=== PATIENT | female | born 1965 | race Caucasian/White ===

== ENCOUNTER 2022-01-23 03:47 | Inpatient (IN) | payer MEDICAID ==
[~2022-01-23] VITALS: Ht 154.9 cm; Wt 109.9 kg
[2022-01-23 03:55] VITALS: BP_SYST 146
--- NOTE | 2022-01-23 03:57 | NUR ---
PER PATIENT, PATIENT HAD A COLONOSCOPY ON 01/10/22. NOW HAVING ABDOMINAL PAIN WITH N/V/D SINCE 1999 YESTERDAY.
--- NOTE | 2022-01-23 03:58 | NUR ---
PATIENT TAKEN TO ROOM 6 FOR EVAL, REPORT GIVEN TO RN'S.
[2022-01-23] MEDS ORDERED: NACL 0.9% 1,000 ML IV ONE ×2 (04:15→07:15)
[2022-01-23] MEDS ORDERED: ONDANSETRON HCL 4 MG/2 ML VIAL IVP ONE ×2 (04:15→07:15)
[2022-01-23] MEDS ORDERED: HYDROmorphone 1 MG/ML INJ. CARTRIDGE IVP ONE (04:15)
--- NOTE | 2022-01-23 04:15 | NUR ---
Dr. Moon at bedside with patient for evaluation.
[2022-01-23] MEDS ORDERED: HYDROmorphone 1 MG/ML INJ. CARTRIDGE ONE (04:32)
--- NOTE | 2022-01-23 04:40 | NUR ---
Pt to CT via christa accompanied by staff.
[2022-01-23 04:45] LABS: BASOPHILS # (AUTO) 0.1 K/uL (0.0-0.2); BASOPHILS % (AUTO) 0.6 % (0.0-2.0); EOSINOPHILS # (AUTO) 0.3 K/uL (0.0-0.4); EOSINOPHILS % (AUTO) 2.3 % (0.0-4.0); HEMATOCRIT 37.5 % (36-48); HEMOGLOBIN 12.9 g/dL (12.0-16.0); LYMPHOCYTES # (AUTO) 2.6 K/uL (1.0-5.5); LYMPHOCYTES % (AUTO) 18.8 % (20.5-51.5); MEAN CORPUSCULAR HEMOGLOBIN 29 pg (27-31); MEAN CORPUSCULAR HGB CONC 34 % (32-36); MEAN CORPUSCULAR VOLUME 84 fL (79.0-98.0); MONOCYTES # (AUTO) 0.9 K/uL (0.0-1.0); MONOCYTES % (AUTO) 6.3 % (1.7-9.3); PLATELET COUNT (AUTO) 272 K/uL (130-430); RED BLOOD CELL COUNT(AUTO) 4.47 MIL/uL (4.2-6.2); RED CELL DISTRIBUTION WIDTH 14.2 % (9.0-15.0); WHITE BLOOD COUNT (AUTO) 13.9 K/uL (4.8-10.8)
--- NOTE | 2022-01-23 04:45 | NUR ---
Pt states that she is feeling relief from abd pain after rec pain medication per MD order. Pt states she "feels little pain now." VSS. Safety precautions in place.
[2022-01-23 04:47] LABS: ANION GAP 10 (5-15); CALCIUM 9.1 mg/dL (8.4-11.0); CHLORIDE 104 mmol/L (98-107); CREATININE 0.87 mg/dL (0.55-1.30); GLUCOSE 172 mg/dL (70-99); POTASSIUM 3.7 mmol/L (3.5-5.1); SODIUM SERUM 141 mmol/L (136-145); UREA NITROGEN, BLOOD 18 mg/dL (8-21)
[2022-01-23 04:56] LABS: ALANINE AMINOTRANSFERASE 43 U/L (12-78); ALBUMIN 3.7 g/dL (3.4-4.8); ASPARTATE AMINOTRANSFERASE 31 U/L (10-37); LIPASE 289 U/L (73-393); TOTAL BILIRUBIN 0.2 mg/dL (0.0-1.0)
[2022-01-23 05:07] LABS: GFR AFRICAN AMERICAN 86 mL/min (>90)
[2022-01-23] MEDS ORDERED: KETOROLAC TROMETHAMINE 30 MG VIAL IVP ONE (05:30)
--- NOTE | 2022-01-23 05:30 | NUR ---
US being done at bedside.
--- NOTE | 2022-01-23 06:49 | NUR ---
Urine collected and sent to lab.
--- NOTE | 2022-01-23 06:59 | NUR ---
COVID SWAB SENT TO LAB.
[2022-01-23 07:08] LABS: BILIRUBIN,URINE NEGATIVE (NEGATIVE); BLOOD, URINE NEGATIVE (NEGATIVE); CLARITY/URINE CLEAR (CLEAR); COLOR,URINE YELLOW (YELLOW); GLUCOSE,URINE NEGATIVE (NEGATIVE); KETONES,URINE TRACE (NEGATIVE); LEUKOCYTE ESTERASE ,URINE NEGATIVE (NEGATIVE); NITRITE, URINE NEGATIVE (NEGATIVE); PH,URINE 5.5 (5.0-8.0); PROTEIN URINE 1+ (NEGATIVE); UROBILINOGEN,URINE 0.2 (0.2-1.0)
[2022-01-23] MEDS ORDERED: PANTOPRAZOLE SODIUM 40 MG/VIAL (PROTONIX) IVP ONE (07:15)
[2022-01-23] MEDS ORDERED: MORPHINE 4 MG INJ. 4 MG/ML VIAL IVP ONE (07:15)
--- NOTE | 2022-01-23 07:20 | NUR ---
RECEIVED PT FROM [facility]. PT IS HERE FOR C/O AB PAIN AND N/V. PT CT SHOWS EARLY SBO. DR. TORRES AT [facility] EDUCATION PT ON THE DX AND INFORMING HER THAT SHE WILL BE ADMITED, BUT POSSIBLE TRANSFERRED D/T MEDICAL INSURANCE. PT AGREED WITH POC. PT IS AAOX4. ON R/A. NORMAL S1S2 NOTED. PT HAS C/O AB THROBBING AB PAIN 8O WITH N/V. PT WILL BE MEDICATED PER AUG. DISTAL PULSE NORMAL, SKIN WARM, NO EDEMA. IV CATH TO LAC 20G, PATENT, SITE WNL, DRESSING CDI. SIDERAILS UP X2.
--- NOTE | 2022-01-23 07:53 | NUR ---
BELONINGS INVENTORY AND MED REC COMPLETED. PT MEDICATED PER MAR FOR PAIN AND STATES PAIN IT 4/10 AND TOLERABLE AT THIS TIME.
[2022-01-23] MEDS ORDERED: OMEP40CA20 PO (07:59)
[2022-01-23] MEDS ORDERED: VITD2000 PO (07:59)
[2022-01-23] MEDS ORDERED: LIP10 PO (07:59)
[2022-01-23] MEDS ORDERED: SERT-131 PO (07:59)
[2022-01-23] MEDS ORDERED: LOSA100T23 PO (07:59)
[2022-01-23] MEDS ORDERED: ALBU2.5V7 INH (08:06)
[2022-01-23] MEDS ORDERED: FLO44 INH (08:06)
--- NOTE | 2022-01-23 08:11 | NUR ---
Admit bed requested Patient will be admitted to care of . Admitted to TELE unit. Diagnosis ABD PAIN, TACHYCARDIA, POSSIBLE SBO Inpatient (Yes or No) YES Observation (Yes or No) NO Orientation concerns or request close to nursing station (Yes or No) NO Covid Status PENDING On vent or bipap NO Isolation requirements NO Needs a sitter NO From Home (Yes or if No enter name of facility) HOME Requires Dialysis (Yes or No) NO Med Rec Completed (Yes of No) YES
[2022-01-23 08:45] LABS: BARBITURATE, URINE NEGATIVE (NEG <=200); BENZODIAZEPINE, URINE NEGATIVE (NEG <=150); CANNABINOID, URINE NEGATIVE (NEG <=50); COCAINE, URINE NEGATIVE (NEG <=150); METHAMPHETAMINES SCREEN,URINE NEGATIVE (NEG <=500); OPIATE, URINE POSITIVE (NEG <=100); PHENCYCLIDINE SCREEN,URINE NEGATIVE (NEG <=25); UR TRICYCLIC ANTIDEPRESSANTS NEGATIVE (NEG <=300); URINE AMPHETAMINE NEGATIVE (NEG <=500); URINE METHADONE NEGATIVE (NEG <=200); URINE OXYCODONE SCREEN NEGATIVE (NEG <=100); URINE PROPOXYPHENE SCREEN NEGATIVE (NEG <=300)
--- NOTE | 2022-01-23 09:12 | NUR ---
Report received from MARIA ELENA Guzmán for continuity of care. Patient in stable condition. Vital signs stable. Patient is alert and oriented x4. No neuro deficits. Respiration even and unlabored. Patient moving around in bed restless, was medicated prior to coming to hospital room. Patient on IV fluids at the moment. at bedside.
--- NOTE | 2022-01-23 09:12 | NUR ---
Patient will be admitted to care of MARIA ELENA CANCINO. Admitted to TELE unit. Will go to room 110B. Belongings list completed. Complete and up to date summary report printed. SBAR report to be given at bedside with opportunity for questions.
[2022-01-23] MEDS: LR 1,000 ML IV SCH ×2 (09:22→17:11)
[2022-01-23 09:23] VITALS: BP_SYST 117
[2022-01-23 09:31] VITALS: BP_SYST 117
[2022-01-23] MEDS ORDERED: NALOXONE HCL 0.4 MG/ML AMP (NARCAN) IVP PRN (10:00)
[2022-01-23] MEDS ORDERED: GASTROGRAFIN 120 ML ONE (10:11)
[2022-01-23] MEDS: HYDROmorphone 1 MG/ML INJ. CARTRIDGE IVP PRN ×2 (10:16→17:10)
[2022-01-23 12:00] VITALS: BP_SYST 124
[2022-01-23] MEDS ORDERED: PANTOPRAZOLE SODIUM 80 MG in NS 100 ML IVP ONE (12:15)
--- NOTE | 2022-01-23 12:35 | NUR ---
CONSULT SURGERY SOB DR KAM,S [phone] S/W DR KAM HE IS AWARE OF CONSULT
--- NOTE | 2022-01-23 12:37 | NUR ---
CONSULT GI ABDOMINAL PAIN DR VELEZ [phone] DR CHOI BAR SUPERVISOR S/W RADHA EXCHANGE
[2022-01-23 16:00] VITALS: BP_SYST 128
[2022-01-23] MEDS: PIPERACILLIN/TAZO 3.375/DEX-IS 50 ML IV SCH ×2 (17:08→18:00)
[2022-01-23] MEDS: ONDANSETRON HCL 4 MG/2 ML VIAL IVP PRN (17:09)
[2022-01-23] MEDS ORDERED: PANTOPRAZOLE SODIUM 40 MG/VIAL (PROTONIX) ONE ×2 (17:22)
[2022-01-23] MEDS: PANTOPRAZOLE SODIUM 40 MG in NS 50 ML IV SCH ×2 (17:30→17:56)
--- NOTE | 2022-01-23 19:20 | NUR ---
OPENING NOTE PT IS SITTING UP IN BED WITH EYES CLOSED, FAMILY BEDSIDE. NO APPARENT SIGNS OF DISTRESS NOTED AT THIS TIME. BED IS LOWEST POSITION WITH FALL AND SAFETY PRECAUTIONS IN PLACE. IV FLUIDS RUNNING ORDERED. ALL NEEDS MET AT THIS TIME
[2022-01-23 20:00] VITALS: BP_SYST 118
[2022-01-24] VITALS: BP_SYST 139
[2022-01-24] MEDS: LR 1,000 ML IV SCH ×2 (01:01→17:35)
[2022-01-24] MEDS: PANTOPRAZOLE SODIUM 40 MG in NS 50 ML IV SCH ×3 (01:03→08:10)
[2022-01-24] MEDS: PIPERACILLIN/TAZO 3.375/DEX-IS 50 ML IV SCH ×4 (01:04→18:23)
[2022-01-24] MEDS: ONDANSETRON HCL 4 MG/2 ML VIAL IVP PRN (01:09)
[2022-01-24] MEDS: HYDROmorphone 1 MG/ML INJ. CARTRIDGE IVP PRN ×2 (01:10→08:40)
--- NOTE | 2022-01-24 01:13 | NUR ---
IV DILAUDID GIVEN RN GARDENIA GAVE 1 MG OF DILAUDID, WITNESSED BY JESICA PACK BP 133/79, HR 78 PAIN, 7/10
--- NOTE | 2022-01-24 02:55 | NUR ---
PT CALLED; PT CALLED AND STATED SHE FEELS LIKE HER ARM IS SWOLLEN , WENT AND CHECKED , NOTICED RIGHT ARM IS SWOLLEN AND FIRM TO TOUCH ; IV FLUID STOPPED,AND DISCONNECTED , ARM ELEVATED ON A PILLOW ;NO OTHER COMPLAINTS AT THIS TIME; WILL NOTIFY PRIMARY NURSE AND WILL REQUEST HER TO CHANGE THE IV SITE .
--- NOTE | 2022-01-24 04:20 | NUR ---
IV RE-INSERTION: Complaining of pain to IV site. Restarted on 01/24/22 0350. Successful after 3 attempts. Resumed current IVF of LR and regulated @ 150 per hour. Will observe for any signs of infiltration. PT TOLERATED WELL
[2022-01-24 07:00] VITALS: BP_SYST 138
[2022-01-24 07:18] LABS: BASOPHILS % (AUTO) 0.3 % (0.0-2.0); EOSINOPHILS # (AUTO) 0.3 K/uL (0.0-0.4); EOSINOPHILS % (AUTO) 3.4 % (0.0-4.0); HEMATOCRIT 33.8 % (36-48); HEMOGLOBIN 11.6 g/dL (12.0-16.0); LYMPHOCYTES # (AUTO) 2.6 K/uL (1.0-5.5); MEAN CORPUSCULAR HEMOGLOBIN 29 pg (27-31); MEAN CORPUSCULAR HGB CONC 35 % (32-36); MEAN CORPUSCULAR VOLUME 85 fL (79.0-98.0); MONOCYTES # (AUTO) 0.7 K/uL (0.0-1.0); MONOCYTES % (AUTO) 7.5 % (1.7-9.3); NEUTROPHILS # (AUTO) 5.9 K/uL (1.8-7.7); NEUTROPHILS % (AUTO) 61.8 % (40.0-70.0); PLATELET COUNT (AUTO) 238 K/uL (130-430); RED BLOOD CELL COUNT(AUTO) 3.99 MIL/uL (4.2-6.2); RED CELL DISTRIBUTION WIDTH 14.6 % (9.0-15.0); WHITE BLOOD COUNT (AUTO) 9.6 K/uL (4.8-10.8)
--- NOTE | 2022-01-24 07:35 | NUR ---
CLOSING NOTE PT IS SITTING UP IN BED WITH EYES CLOSED. NO APPARENT SIGNS OF DISTRESS NOTED AT THIS TIME. BED IS IN LOWEST POSITION WITH SAFETY PRECAUTIONS IN PLACE. CALL LIGHT IS WITHIN REACH. IV FLUIDS RUNNING ORDERED
[2022-01-24 07:45] LABS: CALCIUM 8.8 mg/dL (8.4-11.0); CREATININE 0.91 mg/dL (0.55-1.30); POTASSIUM 3.9 mmol/L (3.5-5.1); TOTAL BILIRUBIN 0.3 mg/dL (0.0-1.0)
[2022-01-24 08:00] VITALS: BP_SYST 138
[2022-01-24 12:00] VITALS: BP_SYST 102
[2022-01-24 16:00] VITALS: BP_SYST 118
[2022-01-24 20:00] VITALS: BP_SYST 129
[2022-01-24] MEDS: PANTOPRAZOLE SODIUM 40 MG/VIAL (PROTONIX) IVP SCH (22:46)
[2022-01-25] VITALS: BP_SYST 136
[2022-01-25] MEDS: PIPERACILLIN/TAZO 3.375/DEX-IS 50 ML IV SCH ×2 (06:19→12:27)
[2022-01-25 06:59] LABS: BASOPHILS % (AUTO) 0.5 % (0.0-2.0); EOSINOPHILS # (AUTO) 0.4 K/uL (0.0-0.4); EOSINOPHILS % (AUTO) 4.8 % (0.0-4.0); HEMATOCRIT 31.3 % (36-48); HEMOGLOBIN 10.9 g/dL (12.0-16.0); LYMPHOCYTES # (AUTO) 2.7 K/uL (1.0-5.5); LYMPHOCYTES % (AUTO) 33.8 % (20.5-51.5); MEAN CORPUSCULAR HEMOGLOBIN 30 pg (27-31); MEAN CORPUSCULAR HGB CONC 35 % (32-36); MEAN CORPUSCULAR VOLUME 85 fL (79.0-98.0); MONOCYTES # (AUTO) 0.5 K/uL (0.0-1.0); MONOCYTES % (AUTO) 6.5 % (1.7-9.3); NEUTROPHILS # (AUTO) 4.4 K/uL (1.8-7.7); NEUTROPHILS % (AUTO) 54.4 % (40.0-70.0); PLATELET COUNT (AUTO) 234 K/uL (130-430); RED CELL DISTRIBUTION WIDTH 14.4 % (9.0-15.0); WHITE BLOOD COUNT (AUTO) 8.1 K/uL (4.8-10.8)
[2022-01-25 07:32] LABS: ALBUMIN 2.9 g/dL (3.4-4.8); CALCIUM 8.7 mg/dL (8.4-11.0); CREATININE 0.78 mg/dL (0.55-1.30); POTASSIUM 3.7 mmol/L (3.5-5.1); TOTAL BILIRUBIN 0.2 mg/dL (0.0-1.0)
[2022-01-25 08:00] VITALS: BP_SYST 145
[2022-01-25] MEDS ORDERED: LOSARTAN POTASSIUM 50 MG TABLET (COZAAR) PO ONE (09:00)
[2022-01-25] MEDS: PANTOPRAZOLE SODIUM 40 MG/VIAL (PROTONIX) IVP SCH (09:05)
[2022-01-25] MEDS: LR 1,000 ML IV SCH (09:06)
[2022-01-25] MEDS ORDERED: LOSA100T3 PO (10:26)
[2022-01-25] MEDS ORDERED: ALBUTEROL SULFATE 0.083% 2.5 MG/3 ML VIAL.NEB INH PRN (10:30)
[2022-01-25] MEDS ORDERED: FLUTICASONE 44 mcg/ACTUATION MDI AER.W.ADAP INH SCH (10:30)
[2022-01-25] MEDS ORDERED: SERTRALINE HCL 50 MG TABLET PO ONE (10:30)
[2022-01-25 10:38] VITALS: BP_SYST 136
[2022-01-25] MEDS ORDERED: PRO40 PO (10:40)
[2022-01-25] MEDS ORDERED: CHOLECALCIFEROL (VITAMIN D3) 2,000 UNIT TABLET PO ONE (11:00)
[2022-01-25] MEDS ORDERED: CIPR500T5 PO (11:20)
[2022-01-25] MEDS ORDERED: METR-343 PO (11:22)
[2022-01-25 11:30] VITALS: BP_SYST 125
[2022-01-25 11:36] VITALS: BP_SYST 142
--- NOTE | 2022-01-25 15:25 | NUR ---
0800: AWAKE, ALERT, ORIENTED X 4 TO NAME, PERSON, PLACE, AND TIME. RESPIRATION EVEN AND UNLABORED NO S/S OF ANY ACUTE DISTRESS NOTED. ABLE TO VERBALIZE NEEDS NO C/O ANY PAIN OR DISCOMFORT NOTED. ABDOMEN SOFT AND NON-DISTENDED, POSITIVE BOWEL SOUND X 4 NO N/V OR DIARRHEA NOTED. SKIN WARM AND DRY INTACT, TO START ON SOILD FOOD THIS AM. WILL REASSESS IF ABLE TO TOLERATE PO W/O ANY ABDOMINAL DISCOMFORT. WILL CONTINUE TO REASSESS PATIENT PRN. 1300: PATIENT DISCHARGE HOME PER DR. BATEMAN'S ORDER, PRESCRIPTION FOR 3 NEW ORAL ANTIBIOTIC, DISCHARGE TEACHING INCLUDING IMPORTANCE OF TAKING AND FINISHING UP THE COURSE OF ORDERED ANTIBIOTIC. CONTINUE OTHER HOME MEDICATION BEFORE. IF PROBLEM KEEP PERSIST OR ABDOMINAL PAIN WORSEN, INSTRUCTED TO GO TO THE NEAREST ER FOR TREATMENT. PATIENT VERBALIZE UNDERSTANDING AND WILL COMPLY WITH INSTRUCTION GIVEN. PATIENT LEFT THE FACILITY VIA PRIVATE VEHICLE ACCOMPANIED BY SPOUSE.
[2022-01-25] MEDS ORDERED: ATORVASTATIN 10 MG TABLET PO SCH (21:00)
[2022-01-25] MEDS ORDERED: SERTRALINE HCL 50 MG TABLET PO SCH (21:00)
[2022-01-26] MEDS ORDERED: METO-290 PO (00:35)
[2022-01-26] MEDS ORDERED: DIPH25CA83 PO (00:35)
[2022-01-26] MEDS ORDERED: CHOLECALCIFEROL (VITAMIN D3) 2,000 UNIT TABLET PO SCH (09:00)
[2022-01-26] MEDS ORDERED: LOSARTAN POTASSIUM 50 MG TABLET (COZAAR) PO SCH (09:00)
== END 2022-01-25 13:30 | disposition home or self-care (01) | DRG 253 ==
LOC: SED 03:47 → STU 08:09
PROVIDERS: ADMIT Internal Medicine; ATTEND Internal Medicine
PROC: 0D9670Z Drainage of Stomach with Drainage Device, Via Natural or Artificial Opening (ICD-10-PCS; principal; 2022-01-23)
PROC: 3E0G76Z Introduction of Nutritional Substance into Upper GI, Via Natural or Artificial Opening (ICD-10-PCS; 2022-01-23)
DX: K92.2 Gastrointestinal hemorrhage, unspecified (principal); K56.609 Unspecified intestinal obstruction, unspecified as to partial versus complete obstruction; R65.10 Systemic inflammatory response syndrome (SIRS) of non-infectious origin without acute organ dysfunction; K76.0 Fatty (change of) liver, not elsewhere classified; I10 Essential (primary) hypertension; K44.9 Diaphragmatic hernia without obstruction or gangrene; K64.9 Unspecified hemorrhoids; E66.01 Morbid (severe) obesity due to excess calories; E78.00 Pure hypercholesterolemia, unspecified; E78.5 Hyperlipidemia, unspecified; D64.9 Anemia, unspecified; Z20.822 Contact with and (suspected) exposure to COVID-19; Z68.42 Body mass index [BMI] 45.0-49.9, adult
CPT/HCPCS: 36415; 71045; 74250-TC; 76376; 76705; 80053; 80061; 80307; 81003; 82272; 83690; 84484; 85025; 87045-TC; 87046; 93005; 94760; 96361; 96374; 96375; 99285; C9113; G0378; J1170; J1885; J2270; J2405; J2543; Q9963

== ENCOUNTER 2022-01-25 21:48 | Emergency (ER) | payer MEDICAID ==
[~2022-01-25] VITALS: Ht 152.4 cm; Wt 108.9 kg
[~2022-01-25 21:48] MED LIST: ALBU2.5V7 INH; CIPR500T5 PO; FLO44 INH; LIP10 PO; LOSA100T23 PO; LOSA100T3 PO; METR-343 PO; OMEP40CA20 PO; PRO40 PO; SERT-131 PO; VITD2000 PO
[2022-01-25 21:59] VITALS: BP_SYST 137
--- NOTE | 2022-01-25 22:04 | NUR ---
PT HERE FOR MID ABD PAIN WITH NAUSEA AFTER DINNER. PER PT SHE WAS JUST DC TODAY FOR SAME SYMPTOM. PT AMBULATED TO RM 7 WITH STEADY GAIT.
--- NOTE | 2022-01-25 22:11 | NUR ---
Pt to bed 7 w/ c/o RUQ abdominal pain 6/10 cramping in nature. Pt states toko 500 mg Tylenol at 2100 tonight w/ no relief of symptoms. Pt was recently admitted and then discharged today from this hospital s/p studies to r/o SBO. Pt able to pass stools at this time. Denies n/v, denies blood in stool, denies chest pain or dizziness. Pt ambulates with strong, steady gait. Respirations even and unlabored. Side rails up, bed in low position, wheels locked.
--- NOTE | 2022-01-25 22:15 | NUR ---
MD Mcqueen at bedside speaking to patient at this time.
[2022-01-25] MEDS ORDERED: DIPHENHYDRAMINE INJ 50 MG/ML VIAL IVP ONE (22:30)
[2022-01-25] MEDS ORDERED: NACL 0.9% 1,000 ML IV ONE (22:30)
[2022-01-25] MEDS ORDERED: METOCLOPRAMIDE HCL 10 MG/2 ML VIAL IVP ONE (22:30)
--- NOTE | 2022-01-25 22:45 | NUR ---
# 20 gauge angiocath placed to left upper forearm. Use of asceptic technique. Opsite placed over site. Blood return noted. Flushed with 10 cc of normal saline. No evidence of infiltration noted. Patient tolerated well.
[2022-01-25 23:58] LABS: BASOPHILS # (AUTO) 0.1 K/uL (0.0-0.2); BASOPHILS % (AUTO) 0.8 % (0.0-2.0); EOSINOPHILS # (AUTO) 0.4 K/uL (0.0-0.4); EOSINOPHILS % (AUTO) 4.2 % (0.0-4.0); HEMATOCRIT 32.4 % (36-48); LYMPHOCYTES # (AUTO) 2.5 K/uL (1.0-5.5); LYMPHOCYTES % (AUTO) 24.2 % (20.5-51.5); MEAN CORPUSCULAR HEMOGLOBIN 29 pg (27-31); MEAN CORPUSCULAR HGB CONC 34 % (32-36); MEAN CORPUSCULAR VOLUME 84 fL (79.0-98.0); MONOCYTES # (AUTO) 0.7 K/uL (0.0-1.0); MONOCYTES % (AUTO) 6.8 % (1.7-9.3); NEUTROPHILS # (AUTO) 6.5 K/uL (1.8-7.7); PLATELET COUNT (AUTO) 245 K/uL (130-430); RED BLOOD CELL COUNT(AUTO) 3.84 MIL/uL (4.2-6.2); RED CELL DISTRIBUTION WIDTH 14.4 % (9.0-15.0); WHITE BLOOD COUNT (AUTO) 10.2 K/uL (4.8-10.8)
--- NOTE | 2022-01-26 | NUR ---
MD Mcqueen at bedside
[2022-01-26 00:08] LABS: CALCIUM 8.8 mg/dL (8.4-11.0); CREATININE 0.8 mg/dL (0.55-1.30); POTASSIUM 3.1 mmol/L (3.5-5.1)
[2022-01-26 00:22] LABS: TOTAL BILIRUBIN 0.2 mg/dL (0.0-1.0)
[2022-01-26] MEDS ORDERED: METO-290 PO (00:35)
[2022-01-26] MEDS ORDERED: DIPH25CA83 PO (00:35)
[2022-01-26] MEDS ORDERED: POTASSIUM CHLORIDE 20 MEQ TAB.PRT.SR PO ONE (00:45)
[2022-01-26] MEDS ORDERED: POTASSIUM CHLORIDE 20 MEQ TAB.PRT.SR ONE (00:46)
--- NOTE | 2022-01-26 00:51 | NUR ---
Patient given written and verbal discharge instructions and verbalizes understanding. ER MD discussed with patient the results and treatment provided. Patient in stable condition. ID arm band removed. IV catheter removed intact and dressing applied, no active bleeding. Rx of Reglan and Diphenhydramine given. Patient educated on pain management and to follow up with PMD. Pain Scale 0/10. Opportunity for questions provided and answered. Medication side effect fact sheet provided.
[2022-01-26 00:52] VITALS: BP_SYST 136
== END 2022-01-26 00:50 | disposition home or self-care (01) ==
LOC: SED 21:48
DX: K44.9 Diaphragmatic hernia without obstruction or gangrene (principal); E87.6 Hypokalemia; K20.90 Esophagitis, unspecified without bleeding; R11.0 Nausea; Z79.899 Other long term (current) drug therapy
CPT/HCPCS: 99284; 96374; 96361; 96375; 80053; 83735; 85025; 36415; J1200; J2765; J7030

== ENCOUNTER 2022-12-21 12:14 | Emergency (ER) | payer MEDICAID ==
[~2022-12-21] VITALS: Ht 154.9 cm; Wt 104.3 kg
[~2022-12-21 12:14] MED LIST changes: +DIPH25CA83 PO; -LOSA100T3 PO; +LOSA100T4 PO; +METO-290 PO
[2022-12-21 12:25] VITALS: BP_SYST 142; PULSE 85; RESP 22; TEMP 98.3; O2SAT 98
--- NOTE | 2022-12-21 12:30 | NUR ---
Pt brought by self, ambulatory, pt presents to ER with sore throat since today, denies cough, congestion, skin pink and warm, afebrile, will cont to monitor
--- NOTE | 2022-12-21 12:50 | NUR ---
Dr Li evaluating patient in the triage room
[2022-12-21 13:10] LABS: BASOPHILS # (AUTO) 0.1 K/uL (0.0-0.2); BASOPHILS % (AUTO) 0.8 % (0.0-2.0); EOSINOPHILS # (AUTO) 0.3 K/uL (0.0-0.4); EOSINOPHILS % (AUTO) 3.9 % (0.0-4.0); HEMATOCRIT 38.3 % (36-48); HEMOGLOBIN 12.7 g/dL (12.0-16.0); LYMPHOCYTES # (AUTO) 2.2 K/uL (1.0-5.5); LYMPHOCYTES % (AUTO) 27.1 % (20.5-51.5); MEAN CORPUSCULAR HEMOGLOBIN 28 pg (27-31); MEAN CORPUSCULAR HGB CONC 33 % (32-36); MEAN CORPUSCULAR VOLUME 85 fL (79.0-98.0); MONOCYTES # (AUTO) 0.5 K/uL (0.0-1.0); MONOCYTES % (AUTO) 6.6 % (1.7-9.3); NEUTROPHILS # (AUTO) 4.9 K/uL (1.8-7.7); NEUTROPHILS % (AUTO) 61.6 % (40.0-70.0); PLATELET COUNT (AUTO) 270 K/uL (130-430); RED BLOOD CELL COUNT(AUTO) 4.52 MIL/uL (4.2-6.2); RED CELL DISTRIBUTION WIDTH 15.6 % (9.0-15.0)
[2022-12-21 13:30] LABS: ANION GAP 9 (5-15); CHLORIDE 105 mmol/L (98-107); CREATININE 0.85 mg/dL (0.55-1.30); GFR AFRICAN AMERICAN 88 mL/min (>90); GLUCOSE 114 mg/dL (74-106); UREA NITROGEN, BLOOD 13 mg/dL (8-21)
[2022-12-21 13:37] LABS: ALANINE AMINOTRANSFERASE 40 U/L (12-78); ALBUMIN 3.6 g/dL (3.4-4.8); ASPARTATE AMINOTRANSFERASE 29 U/L (10-37); TOTAL BILIRUBIN 0.4 mg/dL (0.0-1.0)
[2022-12-21] MEDS ORDERED: PRO40 PO (13:56)
[2022-12-21] MEDS ORDERED: AMOX500C2 PO (13:57)
--- NOTE | 2022-12-21 14:35 | NUR ---
Patient given written and verbal discharge instructions and verbalizes understanding. ER MD discussed with patient the results and treatment provided. Patient in stable condition. ID arm band removed. Rx of Amoxicillin, Protonix given. Patient educated on pain management and to follow up with PMD. Pain Scale 2/10. Opportunity for questions provided and answered. Medication side effect fact sheet provided.
[2022-12-21 14:38] VITALS: BP_SYST 142; PULSE 85; RESP 22; TEMP 98.3; O2SAT 98
== END 2022-12-21 14:35 | disposition home or self-care (01) ==
LOC: SED 12:14
DX: R07.9 Chest pain, unspecified (principal); J02.9 Acute pharyngitis, unspecified; K21.9 Gastro-esophageal reflux disease without esophagitis; M54.2 Cervicalgia; R10.13 Epigastric pain; E11.9 Type 2 diabetes mellitus without complications; I10 Essential (primary) hypertension; Z79.899 Other long term (current) drug therapy
CPT/HCPCS: 36415; 80053; 84484; 85025; 93005; 99284